=== PATIENT | female | born 1935 | race Caucasian/White ===

== ENCOUNTER → 2018-03-20 | Outpatient (CLI) | payer MEDICARE ==
[~2018-03-20] MED LIST: DOCU100 PO; MAGCIT300 PO; OMEP20ER PO; PHENA200 PO
== END | disposition home or self-care (01) ==
LOC: LAB SHORT 16:00 → LAB 16:00
DX: R10.2 Pelvic and perineal pain (principal)
CPT/HCPCS: 87086

== ENCOUNTER → 2018-03-24 | Outpatient (CLI) | payer MEDICARE ==
[2018-03-26 13:54] LABS: T. vaginalis (DNA Probe) Negative (NEGATIVE)
[2018-03-26 13:55] LABS: Candida species (DNA Probe) Negative (NEGATIVE); G. vaginalis (DNA Probe) Positive (NEGATIVE)
== END ==
LOC: LAB 14:00 → LAB SHORT 14:00
PROVIDERS: Family Medicine
DX: N90.89 Other specified noninflammatory disorders of vulva and perineum (principal); L29.8 Other pruritus; B37.3 Candidiasis of vulva and vagina
CPT/HCPCS: 87480; 87510; 87660